=== PATIENT | male | born 1985 | race African-American/Black ===

== ENCOUNTER 2022-07-08 09:03 | Emergency (ER) | payer OTHER ==
[2022-07-08] MEDS ORDERED: Ketorolac Tromethamine 30 MG/ML VIAL ONE (09:33)
[2022-07-08] MEDS ORDERED: diphenhydrAMINE 50 MG/ML VIAL ONE (09:33)
[2022-07-08] MEDS ORDERED: Metoclopramide HCl 10 MG/2 ML VIAL ONE (09:33)
[2022-07-08 10:15] LABS: #Basophils 0.1 thou/uL (0.0-0.2); #Lymphocytes 1.3 thou/uL (1.20-3.40); #Monocytes 0.3 thou/uL (0.11-0.59); #Neutrophils 3.1 thou/uL (1.40-6.50); %Basophils 1.4 % (0.0-1.0); %Eosinophils 0.7 % (0.0-10.0); %Lymphocytes 26.3 % (21.0-51.0); %Monocytes 6.3 % (0.0-10.0); %Neutrophils 65.2 % (42.0-75.0); Hemoglobin 14.5 g/dL (14.0-18.0); Mean Corpuscular HGB CONC 31.6 g/dL (32.0-36.0); Mean Corpuscular Hemoglobin 29.6 pg (27.0-31.0); Mean Corpuscular Volume 93.6 fl (78.0-98.0); Platelet Count 149 10x3/uL (130-400); RBC Distribution Width 10.9 % (11.5-14.5); Red Blood Cell (RBC) Count 4.91 mill/uL (4.70-6.10); White Blood Cell (WBC) Count 4.8 10x3/uL (4.8-10.8)
[2022-07-08 10:30] LABS: ALT (SGPT) 18 U/L (8-55); AST (SGOT) 23 U/L (5-34); Alkaline Phosphatase 33 U/L (40-110); Anion Gap 11 mmol/L (10-20); BUN (Urea Nitrogen) 17 mg/dL (8.9-20.6); Bilirubin, Total 0.8 mg/dL (0.2-1.2); Calc. Creatinine Clearance 0 mL/min (70-130); Calcium 9.2 mg/dL (7.8-10.44); Carbon Dioxide 27 mmol/L (22-29); Chloride 105 mmol/L (98-107); Estimated GFR 61; Glucose 86 mg/dL (70-105); Lipase 21 U/L (8-78); Potassium 3.8 mmol/L (3.5-5.1); Sodium 139 mmol/L (136-145)
== END 2022-07-08 12:35 | disposition home or self-care (01) ==
LOC: ERS 09:03
DX: R20.2 Paresthesia of skin (principal); I10 Essential (primary) hypertension
CPT/HCPCS: 36415; 36416; 70450; 70551; 80053; 83690; 83735; 85025; 93005; 96374; 96375; J1200; J1885; J2765